=== PATIENT | female | born 1990 | race Caucasian/White ===

== ENCOUNTER 2019-09-09 10:45 | Emergency (ER) | payer BC ==
[~2019-09-09] VITALS: Ht 154.9 cm; Wt 95.3 kg
[2019-09-09 10:57] VITALS: BP 140/82
[2019-09-09] MEDS ORDERED: PRED50TA PO (11:19)
[2019-09-09] MEDS ORDERED: HYDR25TA PO (11:19)
[2019-09-09] MEDS ORDERED: FAMO-63 PO (11:19)
--- NOTE | 2019-09-09 11:19 | PHYS DOC ---
Past History Past Medical History: Asthma Past Surgical History: , Tubal ligation Smoking: Non-smoker Alcohol Use: None Drug Use: None Adult General Chief Complaint Chief Complaint: ALLERGIC REACTION HPI HPI Patient is a 29-year-old female presents complaining of a rash on all 4 extremities, chest, abdomen, and back. This started approximately 2 days ago, after she traveled to [place] and stayed at a hotel. This started after waking up, having been in the sheets overnight. She does get relief with Benadryl. There is no difficulty breathing, and no nausea or vomiting. The rash is itchy. There is no drainage from the rash. Symptoms are moderate to severe in intensity.[] Review of Systems Review of Systems Constitutional: Denies fever or chills [] Eyes: Denies change in visual acuity, redness, or eye pain [] HENT: Denies nasal congestion or sore throat [] Respiratory: Denies cough or shortness of breath [] Cardiovascular: No chest pain or palpitations[] GI: Denies abdominal pain, nausea, vomiting, bloody stools or diarrhea [] : Denies dysuria or hematuria [] Musculoskeletal: Denies back pain or joint pain [] Integument: See history of present illness[] Neurologic: Denies headache, focal weakness or sensory changes [] Endocrine: Denies polyuria or polydipsia [] All other systems were reviewed and found to be within normal limits, except as documented in this note. Allergies Allergies Allergies Coded Allergies Type Severity Reaction Last Updated Verified Penicillins Allergy Unknown 09/09/19 Yes shellfish derived Allergy Unknown 09/09/19 Yes Physical Exam Physical Exam Constitutional: Well developed, well nourished, no acute distress, non-toxic appearance. [] HENT: Normocephalic, atraumatic, bilateral external ears normal, oropharynx moist, no oral exudates, nose normal. [] Eyes: PERRLA, EOMI, conjunctiva normal, no discharge. [] Neck: Normal range of motion, no tenderness, supple, no stridor. [] Cardiovascular:Heart rate regular rhythm, no murmur [] Lungs & Thorax: Bilateral breath sounds clear to auscultation [] Abdomen: Bowel sounds normal, soft, no tenderness, no masses, no pulsatile masses. [] Skin: Warm, dry, erythematous rash on all 4 extremities, chest, abdomen, and back. There are no petechiae. No excoriations. No drainage. No inguinal or axillary lymphadenopathy. No palm or sole involvement. [] Back: No tenderness, no CVA tenderness. [] Extremities: No tenderness, no cyanosis, no clubbing, ROM intact, no edema. [] Neurologic: Alert and oriented X 3, normal motor function, normal sensory function, no focal deficits noted. [] Psychologic: Affect normal, judgement normal, mood normal. [] Current Patient Data Vital Signs Vital Signs Date Time Temp Pulse Resp B/P (MAP) Pulse Ox O2 Delivery O2 Flow Rate FiO2 09/09/19 10:57 97.7 91 18 97 Room Air EKG EKG [] Radiology/Procedures Radiology/Procedures [] Course & Med Decision Making Course & Med Decision Making Pertinent Labs and Imaging studies reviewed. (See chart for details) ED course: Patient arrived, was placed in bed, and tolerated exam well. Findings and plan were discussed with patient and her mother who voiced understanding. All questions were answered. She was discharged in improved condition. Medical decision making: There is no evidence of anaphylaxis. No evidence of toxic epidermal necrolysis, no staph scalded skin syndrome, no Rivera-Efren syndrome.[] Dragon Disclaimer Dragon Disclaimer This electronic medical record was generated, in whole or in part, using a voice recognition dictation system. Departure Departure: Impression: Primary Impression: Urticaria Disposition: 01 HOME, SELF-CARE Condition: IMPROVED Referrals: PCP,NO (PCP) Patient Instructions: Rash Additional Instructions: Stop the Benadryl, take the new medications as prescribed. Follow-up with your regular doctor in 2 days. If you do not have regular doctor list of local clinics will be provided. Return to the emergency department if worsening rash, difficulty breathing, or any other concerns. Scripts Prednisone (PREDNISONE) 50 Mg Tablet 1 TAB PO DAILY for INFLAMMATION, #5 TAB Prov: URIEL ESPINOZA DO 09/09/19 Famotidine (PEPCID) 20 Mg Tablet 1 TAB PO BID for allergic reaction, #20 TAB 0 Refills Prov: URIEL ESPINOZA DO 09/09/19 Hydroxyzine Hcl (HYDROXYZINE HCL) 25 Mg Tablet 1 TAB PO TID for allergic reaction, #30 TAB Prov: URIEL ESPINOZA DO 09/09/19 URIEL ESPINOZA DO Sep 09, 2019 11:19
== END 2019-09-09 11:24 | disposition home or self-care (01) ==
LOC: ER 10:45
DX: L50.9 Urticaria, unspecified (principal); J45.909 Unspecified asthma, uncomplicated; Z88.0 Allergy status to penicillin; Z91.013 Allergy to seafood
CPT/HCPCS: 99283

== ENCOUNTER 2019-10-22 11:47 | Emergency (ER) | payer BC ==
[~2019-10-22] VITALS: Ht 154.9 cm; Wt 99.6 kg
[~2019-10-22 11:47] MED LIST: FAMO-63 PO; HYDR25TA PO; PRED50TA PO
[2019-10-22] MEDS ORDERED: ONDANSETRON ODT 4 MG TAB.RAPDIS PO ONE (12:15)
[2019-10-22] MEDS ORDERED: DEXAMETHASONE 4 MG TABLET PO ONE (12:15)
--- NOTE | 2019-10-22 12:21 | PHYS DOC ---
Past History Past Medical History: Asthma Past Surgical History: , Tubal ligation Smoking: Non-smoker Alcohol Use: Rarely Drug Use: None Adult General Chief Complaint Chief Complaint: Influenza HPI HPI Patient is a 29-year-old female that presents to the ED with worsening URI symptoms. Patient states that she is diagnosed with fluid that a on after experiencing fever, myalgias, and productive cough. Patient was given Tamiflu but since reports having increased chest congestion, wheezing, shortness of breath, nausea, vomiting, and diarrhea. Patient reports this morning she became short of breath and wheezing her lips and fingertips turned purple. She states that this is a common presentation of her exacerbation of asthma. She needs her inhaler at 10 AM this morning with minimal relief. Denies as history of tubal ligation and that she is currently on her menstrual period. Review of Systems Review of Systems Constitutional: Denies fever or chills Eyes: Denies redness or eye pain HENT: Denies nasal congestion or sore throat Respiratory: Reports shortness of breath, cough, and wheezing. Cardiovascular: Denies chest pain or palpitations. Reports chest congestion GI: Denies abdominal pain, reports nausea and vomiting. : Denies dysuria or hematuria Musculoskeletal: Denies back pain or joint pain. Force myalgias Integument: Denies rash or skin lesions Neurologic: Denies headache, focal weakness or sensory changes Complete systems were reviewed and found to be within normal limits, except as documented in this note. Current Medications Current Medications Current Medications Medications (Trade) Dose Ordered Sig/Sheridan Start Time Stop Time Status Last Admin Dose Admin Dexamethasone (Decadron) 10 mg 1X ONCE 10/22/19 12:15 10/22/19 12:16 10/22/19 12:12 10 MG Allergies Allergies Allergies Coded Allergies Type Severity Reaction Last Updated Verified Penicillins Allergy Unknown 09/09/19 Yes shellfish derived Allergy Unknown 09/09/19 Yes Physical Exam Physical Exam Constitutional: Well developed, well nourished, no acute distress, non-toxic appearance HENT: Normocephalic, atraumatic, oropharynx moist, TM clear, pharynx without exudate or erythema Eyes: Conjunctiva normal, no discharge Neck: Normal range of motion, no tenderness, supple Cardiovascular: Heart rate normal, regular rhythm Lungs & Thorax: Diffuse inspiratory and expiratory wheezing in all lung goodwin. No stridor, no crackles. Abdomen: Soft, no tenderness Skin: Warm, dry, no erythema, no rash Extremities: No tenderness, ROM intact, no edema Neurologic: Alert and oriented X 3, no focal deficits noted Psychologic: Affect normal, judgement normal Current Patient Data Vital Signs Vital Signs Date Time Temp Pulse Resp B/P (MAP) Pulse Ox O2 Delivery O2 Flow Rate FiO2 10/22/19 11:55 98.0 106 24 121/84 (96) 95 Room Air EKG EKG [] Radiology/Procedures Radiology/Procedures PROCEDURE: CHEST PA & LATERAL CHEST PA LATERAL History: Cough Comparison: None. Findings: No consolidation or pleural effusion. Normal heart size. No pneumothorax. Impression: 1. No acute cardiopulmonary process. Electronically signed by: Juan Lugo DO (10/22/2019 12:30 PM) [facility] Course & Med Decision Making Course & Med Decision Making Pertinent Labs and Imaging studies reviewed. (See chart for details) Patient presents with a history of an influenza A diagnosis and history of asthma presents with worsening fever, wheezing, nausea, and vomiting . Symptomatic treatment provided including respiratory neb and steroid. Nausea addressed. Chest x-ray without acute process. Patient stable for discharge with outpatient follow-up with PCP. Discussed findings and plan with patient, who acknowledges understanding and agreement. Dragon Disclaimer Dragon Disclaimer This electronic medical record was generated, in whole or in part, using a voice recognition dictation system. Departure Departure: Impression: Primary Impression: Viral syndrome Additional Impressions: Asthma Nausea & vomiting Diarrhea Disposition: HOME, SELF-CARE Condition: IMPROVED Referrals: NON,STAFF (PCP) Patient Instructions: Asthma, Adult, [id number], Diarrhea, [id number], Diet for Diarrhea, Adult, Nausea and Vomiting, [id number], Viral Syndrome Scripts Ondansetron (ONDANSETRON ODT) 4 Mg Tab.rapdis 1 TAB PO PRN Q6-8HRS PRN for NAUSEA, #16 TAB Prov: TANYA SYLVESTER DO 10/22/19 Benzonatate (TESSALON PERLE) 100 Mg Capsule 1 CAP PO TID PRN for COUGH, #21 CAP Prov: TANYA SYLVESTER DO 10/22/19 Guaifenesin/Codeine Phosphate (GUAIFENESIN-CODEINE SYRUP) 118 Ml Liquid 10 ML PO Q4HRS PRN for COUGH, #240 ML Prov: TANYA SYLVESTER DO 10/22/19 Prednisone (PREDNISONE) 20 Mg Tablet 2 TAB PO DAILY for Asthma, #8 TAB Start this prescription tomorrow, 10/23/2019 Prov: TANYA SYLVESTER DO 10/22/19 Problem Qualifiers Additional Impressions: Asthma Asthma severity: mild Asthma persistence: intermittent Asthma complication type: with acute exacerbation Qualified Codes: J45.21 - Mild intermittent asthma with (acute) exacerbation Nausea & vomiting Vomiting type: unspecified Vomiting Intractability: non-intractable Qualified Codes: R11.2 - Nausea with vomiting, unspecified Diarrhea Diarrhea type: unspecified type Qualified Codes: R19.7 - Diarrhea, unspecified TANYA SYLVESTER DO Oct 22, 2019 12:21
[2019-10-22] MEDS ORDERED: IPRATRPIUM/ALBUTEROL 0.5/2.5MG 3 ML NEBU. NEB ONE (12:30)
--- NOTE | 2019-10-22 12:33 | RAD ---
CHEST PA LATERAL History: Cough Comparison: None. Findings: No consolidation or pleural effusion. Normal heart size. No pneumothorax. Impression: 1. No acute cardiopulmonary process. Electronically signed by: Juan Lugo DO (10/22/2019 12:30 PM) [facility]
[2019-10-22] MEDS ORDERED: BENZ100C PO (12:41)
[2019-10-22] MEDS ORDERED: PRED20TA PO (12:41)
[2019-10-22] MEDS ORDERED: ONDA4TAB12 PO (12:41)
[2019-10-22] MEDS ORDERED: GUAI118L13 PO (12:41)
[2019-10-22 12:45] VITALS: BP 134/84
== END 2019-10-22 12:46 | disposition home or self-care (01) ==
LOC: ER 11:47
DX: B34.9 Viral infection, unspecified (principal); J45.909 Unspecified asthma, uncomplicated; R11.2 Nausea with vomiting, unspecified; R19.7 Diarrhea, unspecified; Z98.51 Tubal ligation status
CPT/HCPCS: 71046; 94640; 99284; J7620; J8540; Q0162